=== PATIENT | female | born 1995 | race American Indian/Alaskan Native ===

== ENCOUNTER 2017-04-02 10:55 | Inpatient (IN) | payer MEDICAID ==
[2017-04-02] MEDS ORDERED: BENADRYL PO PRN (12:27)
[2017-04-02] MEDS ORDERED: COLACE PO PRN (12:27)
[2017-04-02] MEDS ORDERED: TYLENOL PO PRN (12:27)
[2017-04-02] MEDS ORDERED: ZOFRAN IV PRN (12:27)
--- NOTE | 2017-04-02 12:27 | History and Physical Report ---
History of Present Illness Date of examination: 04/02/17 Chief complaint: Pt complains of being unable to swallow and dehydration History of present illness: Pt is a 22yo BF EDC 07/08/17; EGA 26 1/7 weeks presents for the office of [facility] complaining of difficulty swallowing over the past few days, and generalized weakness. She has Myasthenia gravis, and is being treated by a Neurologist at [place], and [facility]. Past History Past Medical History: neurologic (Myasthenia gravis) Social history: no significant social history, single - Obstetrical History Expected Date of Delivery: 07/08/17 Actual Gestation: 26 Week(s) 1 Day(s) : 1 Medications and Allergies Allergies Allergy/AdvReac Type Severity Reaction Status Date / Time No Known Allergies Allergy Verified 09/22/14 17:18 Home Medications Medication Instructions Recorded Confirmed Last Taken Type Tablet 1 tab PO DAILY 04/02/17 04/02/17 04/01/17 07:00 History Pyridostigmine 60 mg PO TID 04/02/17 04/02/17 04/01/17 21:00 History Review of Systems All systems: negative Constitutional: weight loss, fatigue, weakness, poor appetite Cardiovascular: shortness of breath Respiratory: shortness of breath - Vital Signs Vital signs: Vital Signs Pulse BP Pulse Ox 107 H 129/87 96 04/02/17 11:36 04/02/17 11:36 04/02/17 11:36 Temp Pulse Resp BP Pulse Ox 98.0 F 119 H 20 129/87 100 04/02/17 11:38 04/02/17 12:21 04/02/17 11:38 04/02/17 11:38 04/02/17 12:21 - Physical Exam Cardiovascular: Regular rate Abdomen: Positive: normal appearance, soft Uterus: Positive: enlarged - Obstetrical FHR: auscultation normal Uterine Contraction Monitor Mode: External Results All other labs normal. Assessment and Plan - Patient Problems (1) 26 weeks gestation of Onset Date: 04/02/17 Current Visit: Yes Status: Acute Plan to address problem: A: IUP @ 26 1/7 weeks Myasthenia gravis - P: Discussed with In [facility] Neurologist ( ) - Pt needs to be transferred to [place] where her Neurologist is an Attending. Discussed with Dr Crump ([phone]) Ob at [place] who will accept her as a patient. (2) Myasthenia gravis affecting Onset Date: 04/02/17 Current Visit: Yes Status: Acute
[2017-04-02] MEDS ORDERED: LACTATED RINGERS 1,000 ML IV SCH (13:00)
[2017-04-02 13:35] VITALS: BP 127/82
[2017-04-03] MEDS ORDERED: PRENATAL VITAMIN PO SCH (10:00)
== END 2017-04-02 13:40 | disposition home or self-care (01) | DRG 781 ==
LOC: TRG 10:55 → LD 10:55 → TRG 13:40
PROVIDERS: ADMIT Obstetrics & Gynecology; ATTEND Obstetrics & Gynecology
DX: O99.352 Diseases of the nervous system complicating pregnancy, second trimester (principal); G70.00 Myasthenia gravis without (acute) exacerbation; Z3A.26 26 weeks gestation of pregnancy